=== PATIENT | female | born 1955 | race Caucasian/White ===

== ENCOUNTER 2018-01-27 21:28 | Inpatient (IN) | payer BC, OTHER ==
[2018-01-27] MEDS ORDERED: Pantoprazole 40 MG Vial IVPUSH ONE (21:36)
[2018-01-27] MEDS ORDERED: Lactated Ringers 1,000 ML IV ONE ×2 (21:36→23:19)
[2018-01-27] MEDS ORDERED: Famotidine 20 MG/2 ML SDV IVPUSH ONE (21:36)
[2018-01-27] MEDS ORDERED: Ondansetron 4 MG/2 ML SDV IVPUSH ONE (21:36)
--- NOTE | 2018-01-27 21:36 | EDM.PDOC ---
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 List & Annotations (1) Abdominal pain SNOMED Code(s): 91937929 Code(s): R10.9 - UNSPECIFIED ABDOMINAL PAIN Status: Acute Priority: High Current Visit: No Onset Date: 01/27/18 Annotation/Comment:: CT scan results as above. Borderline peritonitis. IV Rocephin and IV Flagyl started in the emergency room. This will be continued during hospitalization with surgical consultation the a.m. depending on her clinical course. Qualifiers: Abdominal location: right lower quadrant Qualified Code(s): R10.31 - Right lower quadrant pain (2) Pneumonia SNOMED Code(s): 643530485 Code(s): J18.9 - PNEUMONIA, UNSPECIFIED ORGANISM Status: Acute Priority: High Current Visit: No Onset Date: ~01/27/18 Annotation/Comment:: Evidence of left lower lobe pneumonia by CT scan as above. Nebulizer treatments and continuation of IV antibiotics as above. Attempt to obtain sputum for culture and sensitivity. Qualifiers: Pneumonia type: due to unspecified organism Laterality: left Lung location: lower lobe of lung Qualified Code(s): J18.1 - Lobar pneumonia, unspecified organism (3) COPD (chronic obstructive pulmonary disease) SNOMED Code(s): 86624050 Code(s): J44.9 - CHRONIC OBSTRUCTIVE PULMONARY DISEASE, UNSPECIFIED Status : Chronic Priority: Medium Current Visit: No Annotation/Comment:: No recent bronchitic type symptoms. COPD by previous chest x-rays with no current medical therapy. No clinical evidence of pneumonia or significant bronchitis. Qualifiers: COPD type: emphysema Emphysema type: panlobular Qualified Code(s): J43.1 - Panlobular emphysema (4) Hypotension SNOMED Code(s): 57203094 Code(s): I95.9 - HYPOTENSION, UNSPECIFIED Status: Acute Priority: High Current Visit: No Annotation/Comment:: Known history of intermittent chronic hypotension. Secondary to fever and tachycardia patient does meet sepsis criteria with blood cultures 2 collected. Lactated Ringer's IV bolus given in the emergency room with additional 1 L bolus started in the emergency room. Continue IV fluids thereafter. Lactic acid level normal. Qualifiers: Hypotension type: other hypotension type Qualified Code(s): I95.89 - Other hypotension (5) Mixed anxiety depressive disorder SNOMED Code(s): 191122039 Code(s): F41.8 - OTHER SPECIFIED ANXIETY DISORDERS Status: Chronic Priority: Medium Current Visit: No Annotation/Comment:: Moderate control secondary to current illness. Continue to observe closely. IV Ativan given for patient comfort. (6) Osteoarthritis SNOMED Code(s): 307317857 Code(s): M19.90 - UNSPECIFIED OSTEOARTHRITIS, UNSPECIFIED SITE Status: Chronic Priority: Medium Current Visit: No Annotation/Comment:: Stable by history with exception of nonspecific low back pain at this time with no recent acute injury, etc. Qualifiers: Osteoarthritis location: multiple joints Osteoarthritis type: primary Qualified Code(s): M15.0 - Primary generalized (osteo)arthritis (7) Postconcussion syndrome SNOMED Code(s): 53368954 Code(s): F07.81 - POSTCONCUSSIONAL SYNDROME Status: Chronic Priority: Medium Current Visit: No Annotation/Comment:: Postconcussion syndrome followed by her neurologist. Exacerbation of chronic headaches today. Change to observe closely. (8) Dehydration SNOMED Code(s): 36940186 Code(s): E86.0 - DEHYDRATION Status: Acute Priority: High Current Visit : No Onset Date: ~01/27/18 Annotation/Comment:: Mild dehydration by clinical exam. IV fluids initiated in the emergency room as above. - Problem List Review Problem List Initiated/Reviewed/Updated: Yes - My Orders Last 24 Hours: My Active Orders 01/27/18 21:36 Peripheral IV Care [RC] . DIRECTED Abdomen Pelvis w Cont [CT] Stat H PYLORI STOOL ANTIGEN [MREF] Urgent OCCULT BLOOD DIAGNOSTIC [OP] Stat Sodium Chloride 0.9% [Saline Flush] 10 ml FLUSH ASDIRECTED PRN Blood Culture x2 Reflex Set [OM.PC] Urgent Peripheral IV Insertion Adult [OM.PC] Stat Resuscitation Status Stat 01/27/18 21:40 CULTURE BLOOD [BC] Stat 01/27/18 21:45 cefTRIAXone [Rocephin] 1 gm Sodium Chloride 0.9% [Normal Saline] 100 ml IV Q12H metroNIDAZOLE/Normal Saline [Flagyl 500 MG in NS 100 ML] 500 mg Premix Bag 1 bag IV Q8H 01/27/18 21:50 CULTURE BLOOD [BC] Stat 01/27/18 21:51 Peripheral IV Care [RC] . DIRECTED Sodium Chloride 0.9% [Saline Flush] 10 ml FLUSH ASDIRECTED PRN Peripheral IV Insertion Adult [OM.PC] Routine 01/28/18 00:10 CULTURE URINE [RM] Stat UA W/MICROSCOPIC [URIN] Stat - Assessment/Plan Admission H&P: Please use this note as an admission H&P Last 24 Hours: My Active Orders 01/27/18 21:36 Peripheral IV Care [RC] . DIRECTED Abdomen Pelvis w Cont [CT] Stat H PYLORI STOOL ANTIGEN [MREF] Urgent OCCULT BLOOD DIAGNOSTIC [OP] Stat Sodium Chloride 0.9% [Saline Flush] 10 ml FLUSH ASDIRECTED PRN Blood Culture x2 Reflex Set [OM.PC] Urgent Peripheral IV Insertion Adult [OM.PC] Stat Resuscitation Status Stat 01/27/18 21:40 CULTURE BLOOD [BC] Stat 01/27/18 21:45 cefTRIAXone [Rocephin] 1 gm Sodium Chloride 0.9% [Normal Saline] 100 ml IV Q12H metroNIDAZOLE/Normal Saline [Flagyl 500 MG in NS 100 ML] 500 mg Premix Bag 1 bag IV Q8H 01/27/18 21:50 CULTURE BLOOD [BC] Stat 01/27/18 21:51 Peripheral IV Care [RC] . DIRECTED Sodium Chloride 0.9% [Saline Flush] 10 ml FLUSH ASDIRECTED PRN Peripheral IV Insertion Adult [OM.PC] Routine 01/28/18 00:10 CULTURE URINE [RM] Stat UA W/MICROSCOPIC [URIN] Stat Assessment:: As above Plan: As above. Extensive precautions were given to the patient and her , who is in agreement with the treatment plan. The patient will require about 3-4 days of inpatient/acute care secondary to multiple health problems as above.
[2018-01-27] MEDS ORDERED: cefTRIAXone 1 GM in Sodium Chloride 0.9% 100 ML IV SCH (21:45)
[2018-01-27] MEDS: Sodium Chloride 0.9% 10 ML Syringe FLUSH PRN ×3 (21:47→22:01)
[2018-01-27] MEDS ORDERED: LORazepam 2 MG/ML SDV IVPUSH ONE (21:50)
[2018-01-27] MEDS ORDERED: Sodium Chloride 0.9% 10 ML Syringe FLUSH PRN (21:51)
[2018-01-27] MEDS ORDERED: Iopamidol 612 MG/ML 100 ML Bottle IVPUSH ONE (22:00)
[2018-01-27 22:11] LABS: CHLORIDE,CL 102 mmol/L (98-107); SODIUM,NA 136 mmol/L (136-145)
[2018-01-27] MEDS ORDERED: Acetaminophen 325 MG Tab PO ONE (22:43)
[2018-01-27] MEDS: metroNIDAZOLE/Normal Saline 500 MG in Premix Bag 1 BAG IV SCH (22:49)
[2018-01-28] MEDS ORDERED: Non-Formulary Medication 1 Each (Rizatriptan Benzoate [Rizatriptan] 5 MG) PO PRN (00:16)
[2018-01-28] MEDS ORDERED: Acetaminophen 325 MG Tab PO PRN (00:22)
[2018-01-28] MEDS ORDERED: traMADol 50 MG Tab PO PRN (00:22)
[2018-01-28] MEDS ORDERED: Albuterol/Ipratropium 3.0-0.5 MG/3 ML Neb Soln NEB PRN (00:22)
[2018-01-28] MEDS ORDERED: Ondansetron 4 MG/2 ML SDV IVPUSH PRN (00:22)
[2018-01-28] MEDS ORDERED: Sodium Chloride 0.9% 10 ML Syringe FLUSH PRN (00:22)
[2018-01-28] MEDS ORDERED: Albuterol 0.083% 2.5 MG/3 ML Neb Soln INH PRN (00:22)
[2018-01-28] MEDS ORDERED: Temazepam 15 MG Cap PO PRN (00:22)
[2018-01-28] MEDS ORDERED: Lactated Ringers 1,000 ML IV SCH ×2 (00:30→00:55)
[2018-01-28] MEDS: Dextromethorphan/guaiFENesin 600-30 MG Tab.ER PO SCH ×2 (00:57→08:26)
[2018-01-28] MEDS: Albuterol/Ipratropium 3.0-0.5 MG/3 ML Neb Soln NEB SCH ×2 (01:13→08:26)
[2018-01-28] MEDS: metroNIDAZOLE/Normal Saline 500 MG in Premix Bag 1 BAG IV SCH (05:34)
[2018-01-28] MEDS: Sodium Chloride 0.9% 10 ML Syringe FLUSH PRN ×4 (05:35→08:59)
[2018-01-28] MEDS ORDERED: Lactated Ringers 1,000 ML IV ONE (07:11)
[2018-01-28] MEDS ORDERED: Sodium Chloride 0.9% 1,000 ML IV SCH (07:15)
[2018-01-28] MEDS ORDERED: DOPamine/Dextrose 5%-Water 400 MG/250 ML BAG IV SCH (07:15)
[2018-01-28 07:56] LABS: CHLORIDE,CL 106 mmol/L (98-107); SODIUM,NA 138 mmol/L (136-145)
[2018-01-28] MEDS ORDERED: FLUoxetine 20 MG Cap PO SCH (08:00)
[2018-01-28] MEDS ORDERED: Budesonide 0.5 MG/2 ML Neb Susp NEB SCH (08:00)
--- NOTE | 2018-01-28 08:33 | PCM.DCSUM1 ---
Discharge Summary - Hospital Course HPI Initial Comments: See emergency room note/admission H&P Brief History: See emergency room note/admission H&P - Discharge Data Discharge Date: 01/28/18 Discharge Disposition: DC/Tfer to Acute Hospital 02 Condition: Serious - Discharge Diagnosis/Problem(s) (1) Sepsis SNOMED Code(s): 33278360 ICD Code: A41.9 - SEPSIS, UNSPECIFIED ORGANISM Status: Acute Priority: High Current Visit: Yes Onset Date: 01/28/18 Problem Details: Probable progressive sepsis with secondary hypotension possibly secondary to GI abnormality. Systolic blood pressure in the 70s this morning with patient given and an additional liter IV bolus of lactated Ringer's with 2 previous IV boluses as below. Continuation of aggressive IV hydration 150 mL per hour after this bolus. Patient was also started on dopamine infusion, which was titrated to 4 g prior to patient transfer. Extensive telephone consultation with the providers at [facility] from 08:15 through 08:25 hours this morning. Providers include Dr. Mendes, medical ICU physician, Dr. Sanders surgical ICU physician, and Dr. Ayala, general surgeon with providers requesting initial evaluation of the patient in their emergency room with possible emergent abdominal laparotomy pending on their evaluation. No further treatment recommendations given. Ambulance transfer with ssrs developer accompaniment. Pressures were somewhat improved prior to transfer as below. Note urine test was normal with urine culture and sensitivity still pending. Blood cultures 2 were collected as below. Dr. Ayala will evaluate the patient in the emergency room. He agrees to contact the emergency room physicians concerning patient transfer. Qualifiers: Sepsis type: sepsis due to unspecified organism Qualified Code(s): A41.9 - Sepsis, unspecified organism (2) Hypotension SNOMED Code(s): 86138873 ICD Code: I95.9 - HYPOTENSION, UNSPECIFIED Status: Acute Priority: High Current Visit: Yes Problem Details: Progressive hypotension as above. Known history of intermittent chronic hypotension. Secondary to fever and tachycardia patient does meet sepsis criteria with blood cultures 2 collected. Lactated Ringer's IV bolus given in the emergency room with additional 1 L bolus started in the emergency room. Continue IV fluids thereafter. Lactic acid level normal on admission and this morning. Qualifiers: Hypotension type: other hypotension type Qualified Code(s): I95.89 - Other hypotension (3) CHF (congestive heart failure) SNOMED Code(s): 03734741 ICD Code: I50.9 - HEART FAILURE, UNSPECIFIED Status: Acute Priority: High Current Visit: Yes Onset Date: 01/28/18 Problem Details: Newly diagnosed fluid overload/acute CHF overall mild in nature secondary to clinical exam, chest x-ray, and elevated BNP. Normal cardiac enzymes, including d-dimer, with no EKG changes, chest pain, or other anginal complaints. Cardiology consultation depending on her clinical course. Qualifiers: Heart failure type: unspecified Heart failure chronicity: acute Qualified Code(s): I50.9 - Heart failure, unspecified (4) Abdominal pain SNOMED Code(s): 64779746 ICD Code: R10.9 - UNSPECIFIED ABDOMINAL PAIN Status: Acute Priority: High Current Visit: Yes Onset Date: 01/27/18 Problem Details: CT scan results as per emergency room note with no direct GI etiology to patient's symptoms, although her appendix could not be completely seen/evaluated. Abdominal pain improved to 2/10 this morning after IV antibiotic therapy with additionally improved borderline rebound. Borderline peritonitis probably still an issue especially in light of progressive anemia since admission with hemoglobin of 10.6 this morning in comparison to 12.4 prior to admission with additional microcytosis. Stool specimen yet to be obtained. IV Rocephin and IV Flagyl started in the emergency room with patient given a 2 g IV bolus of Rocephin immediately prior to transfer secondary to sepsis as above. Qualifiers: Abdominal location: right lower quadrant Qualified Code(s): R10.31 - Right lower quadrant pain (5) Pneumonia SNOMED Code(s): 114200963 ICD Code: J18.9 - PNEUMONIA, UNSPECIFIED ORGANISM Status: Acute Priority : High Current Visit: No Onset Date: ~01/27/18 Problem Details: Evidence of left lower lobe pneumonia by CT scan as above. Today's chest x-ray indicates only borderline left lower lobe and right middle lobe infiltrates versus atelectasis with small left pleural effusion Nebulizer treatments given during this hospitalization with no significant wheezing or respiratory distress. Attempted to obtain sputum for culture and sensitivity, however unsuccessful prior to patient transfer. Qualifiers: Pneumonia type: due to unspecified organism Laterality: left Lung location: lower lobe of lung Qualified Code(s): J18.1 - Lobar pneumonia, unspecified organism (6) COPD (chronic obstructive pulmonary disease) SNOMED Code(s): 43289906 ICD Code: J44.9 - CHRONIC OBSTRUCTIVE PULMONARY DISEASE, UNSPECIFIED Status : Chronic Priority: Medium Current Visit: No Problem Details: No recent bronchitic type symptoms despite fever and evidence of possible borderline left lower lobe pneumonia by CT scan on admission as above. COPD by previous chest x- rays with no current medical therapy. Consider PFTs once her condition has stabilized. Qualifiers: COPD type: emphysema Emphysema type: panlobular Qualified Code(s): J43.1 - Panlobular emphysema (7) Mixed anxiety depressive disorder SNOMED Code(s): 391942053 ICD Code: F41.8 - OTHER SPECIFIED ANXIETY DISORDERS Status: Chronic Priority: Medium Current Visit: No Problem Details: Moderate control secondary to current illness. Continue to observe closely. IV Ativan given for patient comfort. (8) Osteoarthritis SNOMED Code(s): 309853903 ICD Code: M19.90 - UNSPECIFIED OSTEOARTHRITIS, UNSPECIFIED SITE Status: Chronic Priority: Medium Current Visit: No Problem Details: Stable by history with exception of nonspecific low back pain at this time with no recent acute injury, etc. Qualifiers: Osteoarthritis location: multiple joints Osteoarthritis type: primary Qualified Code(s): M15.0 - Primary generalized (osteo)arthritis (9) Postconcussion syndrome SNOMED Code(s): 80962186 ICD Code: F07.81 - POSTCONCUSSIONAL SYNDROME Status: Chronic Priority: Medium Current Visit: No Problem Details: Postconcussion syndrome followed by her neurologist. Exacerbation of chronic headaches today, although improved this morning to 4/10. Continue to observe closely. (10) Dehydration SNOMED Code(s): 46915009 ICD Code: E86.0 - DEHYDRATION Status: Acute Priority: High Current Visit: No Onset Date: ~01/27/18 Problem Details: Mild dehydration by clinical exam. IV fluids initiated in the emergency room as above. (11) Anemia SNOMED Code(s): 306907422 ICD Code: D64.9 - ANEMIA, UNSPECIFIED Status: Acute Priority: High Current Visit: Yes Onset Date: ~01/28/18 Problem Details: Progressive microcytic anemia as above. GI workup/surgical consult depending on her clinical course as above. Consider iron studies, etc. Qualifiers: Anemia type: other cause Other causes of anemia: other cause, not classified Qualified Code(s): D64.89 - Other specified anemias (12) Hypoalbuminemia SNOMED Code(s): 154798114 ICD Code: E88.09 - OTH DISORDERS OF PLASMA-PROTEIN METABOLISM, NEC Status: Acute Priority: Medium Current Visit: Yes Onset Date: 01/28/18 Problem Details: Consider high-protein Glucerna supplements after patient's condition improves. (13) Hypocalcemia SNOMED Code(s): 7365026 ICD Code: E83.51 - HYPOCALCEMIA Status: Acute Priority: Medium Current Visit: Yes Onset Date: 01/28/18 Problem Details: Consider calcium supplement after patient's condition improves. - Patient Summary/Data Operative Procedure(s) Performed: None Complications: Progressive sepsis, hypertension, and mild CHF as above Consults: ICU specialists and general surgeon from [facility] in [place] as above Labs Pending at D/C: 1. Blood cultures 2 2. Urine culture and sensitivity results Recommended Follow-up Testing/Procedures: As above Planned Operative Procedure(s) after DC: As above Hospital Course: Patient was admitted to inpatient/acute care on telemetry for evaluation of abdominal pain, possible peritonitis, and additional possible pneumonia with progressive hypotension and anemia during this hospitalization as above. Patient was aggressively treated with IV Rocephin, IV Flagyl, and IV fluids with evidence of progressive sepsis during her brief hospitalization. Aggressive care for her sepsis as above. Note some fluid overload and CHF as above. Emergent transfer to [place] secondary to progressive complications as above, although improved vital signs prior to transfer on dopamine drip. She was kept nothing by mouth during this hospitalization. - Patient Instructions Diet: NPO Activity: Bedrest Driving: Do Not Drive Showering/Bathing: No Showering Notify Provider of: Fever, Increased Pain, Nausea and/or Vomiting Other/Special Instructions: Ambulance transfer with ssrs developer accompaniment - Discharge Plan Home Medications: Home Meds FLUoxetine [PROzac] 20 mg PO DAILY 07/05/14 [History] traMADol [Ultram] 50 mg PO Q6H PRN 05/24/15 [History] Acetaminophen 500 mg PO Q6H PRN 03/04/16 [History] Naproxen Sodium [Aleve] 220 mg PO TID PRN 01/27/18 [History] Ondansetron [Zofran ODT] 4 mg PO Q6H PRN 01/27/18 [History] Rizatriptan Benzoate [Rizatriptan] 5 mg PO DAILY PRN 01/27/18 [History] Patient Handouts: Abdominal Pain, Adult, Ceftriaxone injection, Hypotension, [id number], Chronic Obstructive Pulmonary Disease, [id number], Metronidazole injection, Community-Acquired Pneumonia, Adult Forms: ED Department Discharge, Interfacility Transfer EMTALA Referrals: Laure Gutierrez PA-C [Primary Care Provider] - - Discharge Summary/Plan Comment DC Time >30 min.: Yes (Coordination of care ) Discharge Summary/Plan Comment: As above. Extensive precautions were given to the patient, who is in agreement with the treatment plan. The patient did notify her prior to patient transfer. - General Info Date of Service: 01/28/18 Admission Dx/Problem (Free Text: 1. Abdominal pain with possible peritonitis 2. Possible beginning sepsis 3. Left lower lobe pneumonia Functional Status: Reports: Pain Controlled, Ambulating, Urinating, New Symptoms (Progressive hypotension as above). Denies: Tolerating Diet (Nothing by mouth) Numeric/FACES Score: 4 (Headache as above) - Review of Systems General: Reports: Weakness, Fatigue. Denies: Fever (Febrile on admission however afebrile at time of transfer with Tylenol given), Malaise, Chills, Night Sweats, Appetite (Some anorexia) HEENT: Reports: Headaches. Denies: Ear Pain, Eye Pain, Sinus Congestion, Sore Throat, Rhinitis, Visual Changes Pulmonary: Reports: Cough. Denies: Shortness of Breath, Pleuritic Chest Pain, Sputum, Hemoptysis, Wheezing Cardiovascular: Reports: Lightheadedness. Denies: Chest Pain, Palpitations, Orthopnea, PND, Edema Gastrointestinal: Reports: Abdominal Pain, Constipation (No bowel movement during this hospitalization), Decreased Appetite. Denies: Difficulty Swallowing , Flatus, Hematochezia, Melena, Nausea, Vomiting Genitourinary: Reports: No Symptoms. Denies: Dysuria, Frequency, Burning, Pain , Urgency, Incontinence, Hematuria, Retention, Flank Pain Musculoskeletal: Reports: Back Pain (Stable nonspecific low back). Denies: Neck Pain, Shoulder Pain, Arm Pain Skin: Reports: No Symptoms. Denies: Jaundice, Pallor, Diaphoresis, Dryness, Bruising, Rash Neurological: Reports: Dizziness, Headache, Weakness. Denies: Confusion, Numbness, Paresthesia, Seizure, Tingling Psychiatric: Reports: No Symptoms. Denies: Confusion, Depression, Anxiety, Agitation, Hallucinations - Patient Data Vitals - Most Recent: Last Vital Signs Temp 36.7 C 01/28/18 04:00 Pulse 88 01/28/18 04:00 Resp 20 01/28/18 04:00 BP 88/54 L 01/28/18 08:12 Pulse Ox 97 01/28/18 04:00 Vital Signs - 24 hr 01/27/18 01/27/18 01/27/18 21:34 21:39 21:54 Temperature [ 38.4 C H Oral] Pulse, 105 H 108 H 104 H Peripheral [ Brachial] Respiratory 20 30 H 28 H Rate Blood Pressure [Right Upper Arm] Blood Pressure 113/63 111/59 L 102/53 L [Upper Arm] O2 Sat by Pulse 93 L 90 L 95 Oximetry 01/27/18 01/27/18 01/27/18 22:09 22:28 22:45 Temperature [ 38.3 C H Oral] Pulse, 106 H 112 H 107 H Peripheral [ Brachial] Respiratory 29 H 19 29 H Rate Blood Pressure [Right Upper Arm] Blood Pressure 96/55 L 104/55 L 99/53 L [Upper Arm] O2 Sat by Pulse 93 L 95 95 Oximetry 01/27/18 01/27/18 01/27/18 23:00 23:10 23:39 Temperature [ Oral] Pulse, 104 H 105 H Peripheral [ Brachial] Respiratory 30 H 27 H Rate Blood Pressure [Right Upper Arm] Blood Pressure 91/48 L 93/50 L 94/50 L [Upper Arm] O2 Sat by Pulse 95 94 L Oximetry 01/27/18 01/28/18 01/28/18 23:55 00:21 04:00 Temperature [ 37.3 C 36.7 C Oral] Pulse, 103 H 88 Peripheral [ Brachial] Respiratory 22 H 20 Rate Blood Pressure [Right Upper Arm] Blood Pressure 94/45 L 80/42 L [Upper Arm] O2 Sat by Pulse 94 L 96 97 Oximetry 01/28/18 01/28/18 01/28/18 05:39 07:00 08:12 Temperature [ 36.5 C Oral] Pulse, 85 Peripheral [ Brachial] Respiratory Rate Blood Pressure 72/42 L 88/54 L [Right Upper Arm] Blood Pressure 86/50 L [Upper Arm] O2 Sat by Pulse Oximetry 01/28/18 01/28/18 08:35 09:00 Temperature [ Oral] Pulse, Peripheral [ Brachial] Respiratory Rate Blood Pressure 92/58 L 92/54 L [Right Upper Arm] Blood Pressure [Upper Arm] O2 Sat by Pulse Oximetry Weight - Most Recent: 62.051 kg I&O - Last 24 hours: Intake & Output 01/27/18 01/28/18 01/28/18 22:59 06:59 14:59 Intake Total 2853 Output Total 600 Balance 2253 Imaging Impressions - Last 24 hrs: monitoring tech shows normal sinus rhythm with heart rate in the 80s prior to transfer with no ectopy or arrhythmia Chest x-ray, portable, on 01/28/18 shows evidence of moderate COPD changes with possible right middle lobe and left lower lobe atelectasis versus mild pulmonary infiltrates. Mild left pleural effusion noted. No significant cardiomegaly with mild to moderate mostly centralized CHF and/or pulmonary hypertension. CT of the abdomen and pelvis with contrast indicates left lower lobe pulmonary infiltrates and pleural effusion with fatty liver and indeterminate 1 cm left renal cyst. Severe constipation. Chronic right sacroiliitis. Appendix cannot be properly visualized. NOTE: Corrected CT scan report requested today with verbal report indicating left rather than right pulmonary infiltrates and pleural effusion. Lab Results - Last 24 hrs: Laboratory Results - last 24 hr 01/27/18 01/27/18 01/27/18 Range/Units 21:40 21:40 21:40 WBC 11.6 H (4.0-10.2) K/uL RBC 3.85 (3.77-5.09) M/uL Hgb 12.4 (11.7-15.5) g/dL Hct 36.4 (34.0-46.0) % MCV 94.5 D (84.0-98.0) fL MCH 32.2 (28.2-33.3) pg MCHC 34.1 (31.7-36.0) g/dL RDW 12.4 (11.2-14.1) % Plt Count 245 (150-350) K/uL Neut % (Auto) 88.6 H (45.0-80.0) % Lymph % (Auto) 5.4 L (10.0-50.0) % [place] % (Auto) 5.8 (2.0-14.0) % Eos % (Auto) 0.1 (0.0-5.0) % Baso % (Auto) 0.1 (0.0-2.0) % Neut # (Auto) 10.27 H (1.40-7.00) K/uL Lymph # (Auto) 0.62 (0.50-3.50) K/uL [place] # (Auto) 0.67 (0.00-1.00) K/uL Eos # (Auto) 0.01 (0.00-0.50) K/uL Baso # (Auto) 0.01 (0.00-0.20) K/uL PT 10.3 (9.8-11.7) SEC INR 1.0 APTT 26.1 (22.1-29.8) SEC D-Dimer, Quantitative (0-400) ng/mL Sodium (136-145) mmol/L Potassium (3.5-5.1) mmol/L Chloride (98-107) mmol/L Carbon Dioxide (21.0-32.0) mmol/L BUN (7-18) mg/dL Creatinine (0.51-1.17) mg/dL Est Cr Clr Drug Dosing mL/min Estimated GFR (MDRD) mL/min Glucose (74-106) mg/dL Lactic Acid (0.4-2.0) mmol/L Uric Acid (2.6-7.2) mg/dL Calcium (8.5-10.1) mg/dL Magnesium (1.8-2.4) mg/dL Total Bilirubin (0.2-1.0) mg/dL AST (15-37) U/L ALT (12-78) U/L Alkaline Phosphatase (46-116) IU/L Creatine Kinase (26-308) U/L Creatine Kinase Index (0.0-2.5) % CK-MB (CK-2) (0.00-3.60) ng/mL Troponin I (0.000-0.056) ng/mL Total Protein (6.4-8.2) g/dL Albumin (3.4-5.0) g/dL Amylase 43 (25-115) U/L Lipase (73-393) U/L Specimen Type Urine Color Urine Appearance Urine pH (5.0-9.0) Ur Specific [place] (1.005-1.030) Urine Protein (NEGATIVE) mg/dL Urine Glucose (UA) (NEGATIVE) mg/dL Urine Ketones (NEGATIVE) mg/dL Urine Occult Blood (NEGATIVE) Urine Nitrite (NEGATIVE) Urine Bilirubin (NEGATIVE) Urine Urobilinogen (0.2-1.0) E.U./dL Ur Leukocyte Esterase (NEGATIVE) Urine RBC /HPF Urine WBC /HPF Ur Epithelial Cells /LPF Urine Bacteria (NONE TO FEW) /HPF 01/27/18 01/27/18 01/28/18 Range/Units 21:40 21:40 00:10 WBC (4.0-10.2) K/uL RBC (3.77-5.09) M/uL Hgb (11.7-15.5) g/dL Hct (34.0-46.0) % MCV (84.0-98.0) fL MCH (28.2-33.3) pg MCHC (31.7-36.0) g/dL RDW (11.2-14.1) % Plt Count (150-350) K/uL Neut % (Auto) (45.0-80.0) % Lymph % (Auto) (10.0-50.0) % [place] % (Auto) (2.0-14.0) % Eos % (Auto) (0.0-5.0) % Baso % (Auto) (0.0-2.0) % Neut # (Auto) (1.40-7.00) K/uL Lymph # (Auto) (0.50-3.50) K/uL [place] # (Auto) (0.00-1.00) K/uL Eos # (Auto) (0.00-0.50) K/uL Baso # (Auto) (0.00-0.20) K/uL PT (9.8-11.7) SEC INR APTT (22.1-29.8) SEC D-Dimer, Quantitative (0-400) ng/mL Sodium 136 (136-145) mmol/L Potassium 3.8 (3.5-5.1) mmol/L Chloride 102 (98-107) mmol/L Carbon Dioxide 24.7 (21.0-32.0) mmol/L BUN 13 (7-18) mg/dL Creatinine 0.84 (0.51-1.17) mg/dL Est Cr Clr Drug Dosing 64.09 mL/min Estimated GFR (MDRD) > 60 mL/min Glucose 106 (74-106) mg/dL Lactic Acid 0.8 (0.4-2.0) mmol/L Uric Acid 3.4 (2.6-7.2) mg/dL Calcium 8.1 L (8.5-10.1) mg/dL Magnesium 2.1 (1.8-2.4) mg/dL Total Bilirubin 0.5 (0.2-1.0) mg/dL AST 24 (15-37) U/L ALT 31 (12-78) U/L Alkaline Phosphatase 62 (46-116) IU/L Creatine Kinase (26-308) U/L Creatine Kinase Index (0.0-2.5) % CK-MB (CK-2) (0.00-3.60) ng/mL Troponin I (0.000-0.056) ng/mL Total Protein 7.1 (6.4-8.2) g/dL Albumin 3.6 (3.4-5.0) g/dL Amylase (25-115) U/L Lipase 123 (73-393) U/L Specimen Type Urinvoid Urine Color Yellow Urine Appearance Clear Urine pH 6.0 (5.0-9.0) Ur Specific [place] <= 1.005 (1.005-1.030) Urine Protein Negative (NEGATIVE) mg/dL Urine Glucose (UA) Negative (NEGATIVE) mg/dL Urine Ketones Negative (NEGATIVE) mg/dL Urine Occult Blood Trace-lysed H (NEGATIVE) Urine Nitrite Negative (NEGATIVE) Urine Bilirubin Negative (NEGATIVE) Urine Urobilinogen 0.2 (0.2-1.0) E.U./dL Ur Leukocyte Esterase Negative (NEGATIVE) Urine RBC 0-5 /HPF Urine WBC 0-5 /HPF Ur Epithelial Cells Rare /LPF Urine Bacteria Rare (NONE TO FEW) /HPF 01/28/18 01/28/18 01/28/18 Range/Units 07:25 07:25 07:25 WBC 12.7 H (4.0-10.2) K/uL RBC 3.30 L (3.77-5.09) M/uL Hgb 10.6 L D (11.7-15.5) g/dL Hct 31.8 L (34.0-46.0) % MCV 96.4 (84.0-98.0) fL MCH 32.1 (28.2-33.3) pg MCHC 33.3 (31.7-36.0) g/dL RDW 12.8 (11.2-14.1) % Plt Count 216 (150-350) K/uL Neut % (Auto) 83.2 H (45.0-80.0) % Lymph % (Auto) 8.2 L (10.0-50.0) % [place] % (Auto) 8.5 (2.0-14.0) % Eos % (Auto) 0.0 (0.0-5.0) % Baso % (Auto) 0.1 (0.0-2.0) % Neut # (Auto) 10.60 H (1.40-7.00) K/uL Lymph # (Auto) 1.05 (0.50-3.50) K/uL [place] # (Auto) 1.08 H (0.00-1.00) K/uL Eos # (Auto) 0.00 (0.00-0.50) K/uL Baso # (Auto) 0.01 (0.00-0.20) K/uL PT 11.5 (9.8-11.7) SEC INR 1.1 APTT 27.2 (22.1-29.8) SEC D-Dimer, Quantitative (0-400) ng/mL Sodium 138 (136-145) mmol/L Potassium 3.9 (3.5-5.1) mmol/L Chloride 106 (98-107) mmol/L Carbon Dioxide 25.9 (21.0-32.0) mmol/L BUN 9 (7-18) mg/dL Creatinine 0.68 (0.51-1.17) mg/dL Est Cr Clr Drug Dosing 79.17 mL/min Estimated GFR (MDRD) > 60 mL/min Glucose 96 (74-106) mg/dL Lactic Acid (0.4-2.0) mmol/L Uric Acid (2.6-7.2) mg/dL Calcium 7.3 L (8.5-10.1) mg/dL Magnesium (1.8-2.4) mg/dL Total Bilirubin 0.4 (0.2-1.0) mg/dL AST 19 (15-37) U/L ALT 21 (12-78) U/L Alkaline Phosphatase 45 L (46-116) IU/L Creatine Kinase 168 (26-308) U/L Creatine Kinase Index 0.5 (0.0-2.5) % CK-MB (CK-2) 0.80 (0.00-3.60) ng/mL Troponin I 0.000 (0.000-0.056) ng/mL Total Protein 5.6 L (6.4-8.2) g/dL Albumin 2.6 L (3.4-5.0) g/dL Amylase (25-115) U/L Lipase (73-393) U/L Specimen Type Urine Color Urine Appearance Urine pH (5.0-9.0) Ur Specific [place] (1.005-1.030) Urine Protein (NEGATIVE) mg/dL Urine Glucose (UA) (NEGATIVE) mg/dL Urine Ketones (NEGATIVE) mg/dL Urine Occult Blood (NEGATIVE) Urine Nitrite (NEGATIVE) Urine Bilirubin (NEGATIVE) Urine Urobilinogen (0.2-1.0) E.U./dL Ur Leukocyte Esterase (NEGATIVE) Urine RBC /HPF Urine WBC /HPF Ur Epithelial Cells /LPF Urine Bacteria (NONE TO FEW) /HPF 01/28/18 01/28/18 Range/Units 07:25 07:25 WBC (4.0-10.2) K/uL RBC (3.77-5.09) M/uL Hgb (11.7-15.5) g/dL Hct (34.0-46.0) % MCV (84.0-98.0) fL MCH (28.2-33.3) pg MCHC (31.7-36.0) g/dL RDW (11.2-14.1) % Plt Count (150-350) K/uL Neut % (Auto) (45.0-80.0) % Lymph % (Auto) (10.0-50.0) % [place] % (Auto) (2.0-14.0) % Eos % (Auto) (0.0-5.0) % Baso % (Auto) (0.0-2.0) % Neut # (Auto) (1.40-7.00) K/uL Lymph # (Auto) (0.50-3.50) K/uL [place] # (Auto) (0.00-1.00) K/uL Eos # (Auto) (0.00-0.50) K/uL Baso # (Auto) (0.00-0.20) K/uL PT (9.8-11.7) SEC INR APTT (22.1-29.8) SEC D-Dimer, Quantitative 150 (0-400) ng/mL Sodium (136-145) mmol/L Potassium (3.5-5.1) mmol/L Chloride (98-107) mmol/L Carbon Dioxide (21.0-32.0) mmol/L BUN (7-18) mg/dL Creatinine (0.51-1.17) mg/dL Est Cr Clr Drug Dosing mL/min Estimated GFR (MDRD) mL/min Glucose (74-106) mg/dL Lactic Acid 1.0 (0.4-2.0) mmol/L Uric Acid (2.6-7.2) mg/dL Calcium (8.5-10.1) mg/dL Magnesium (1.8-2.4) mg/dL Total Bilirubin (0.2-1.0) mg/dL AST (15-37) U/L ALT (12-78) U/L Alkaline Phosphatase (46-116) IU/L Creatine Kinase (26-308) U/L Creatine Kinase Index (0.0-2.5) % CK-MB (CK-2) (0.00-3.60) ng/mL Troponin I (0.000-0.056) ng/mL Total Protein (6.4-8.2) g/dL Albumin (3.4-5.0) g/dL Amylase (25-115) U/L Lipase (73-393) U/L Specimen Type Urine Color Urine Appearance Urine pH (5.0-9.0) Ur Specific [place] (1.005-1.030) Urine Protein (NEGATIVE) mg/dL Urine Glucose (UA) (NEGATIVE) mg/dL Urine Ketones (NEGATIVE) mg/dL Urine Occult Blood (NEGATIVE) Urine Nitrite (NEGATIVE) Urine Bilirubin (NEGATIVE) Urine Urobilinogen (0.2-1.0) E.U./dL Ur Leukocyte Esterase (NEGATIVE) Urine RBC /HPF Urine WBC /HPF Ur Epithelial Cells /LPF Urine Bacteria (NONE TO FEW) /HPF Laboratory Tests 01/27/18 01/27/18 01/27/18 Range/Units 21:40 21:40 21:40 WBC 11.6 H (4.0-10.2) K/uL RBC 3.85 (3.77-5.09) M/uL Hgb 12.4 (11.7-15.5) g/dL Hct 36.4 (34.0-46.0) % MCV 94.5 D (84.0-98.0) fL MCH 32.2 (28.2-33.3) pg MCHC 34.1 (31.7-36.0) g/dL RDW 12.4 (11.2-14.1) % Plt Count 245 (150-350) K/uL Neut % (Auto) 88.6 H (45.0-80.0) % Lymph % (Auto) 5.4 L (10.0-50.0) % [place] % (Auto) 5.8 (2.0-14.0) % Eos % (Auto) 0.1 (0.0-5.0) % Baso % (Auto) 0.1 (0.0-2.0) % Neut # (Auto) 10.27 H (1.40-7.00) K/uL Lymph # (Auto) 0.62 (0.50-3.50) K/uL [place] # (Auto) 0.67 (0.00-1.00) K/uL Eos # (Auto) 0.01 (0.00-0.50) K/uL Baso # (Auto) 0.01 (0.00-0.20) K/uL PT 10.3 (9.8-11.7) SEC INR 1.0 APTT 26.1 (22.1-29.8) SEC D-Dimer, Quantitative (0-400) ng/mL Sodium (136-145) mmol/L Potassium (3.5-5.1) mmol/L Chloride (98-107) mmol/L Carbon Dioxide (21.0-32.0) mmol/L BUN (7-18) mg/dL Creatinine (0.51-1.17) mg/dL Est Cr Clr Drug Dosing mL/min Estimated GFR (MDRD) mL/min Glucose (74-106) mg/dL Lactic Acid (0.4-2.0) mmol/L Uric Acid (2.6-7.2) mg/dL Calcium (8.5-10.1) mg/dL Magnesium (1.8-2.4) mg/dL Total Bilirubin (0.2-1.0) mg/dL AST (15-37) U/L ALT (12-78) U/L Alkaline Phosphatase (46-116) IU/L Creatine Kinase (26-308) U/L Creatine Kinase Index (0.0-2.5) % CK-MB (CK-2) (0.00-3.60) ng/mL Troponin I (0.000-0.056) ng/mL NT-Pro-B Natriuret Pep (0-125) pg/mL Total Protein (6.4-8.2) g/dL Albumin (3.4-5.0) g/dL Amylase 43 (25-115) U/L Lipase (73-393) U/L Specimen Type Urine Color Urine Appearance Urine pH (5.0-9.0) Ur Specific [place] (1.005-1.030) Urine Protein (NEGATIVE) mg/dL Urine Glucose (UA) (NEGATIVE) mg/dL Urine Ketones (NEGATIVE) mg/dL Urine Occult Blood (NEGATIVE) Urine Nitrite (NEGATIVE) Urine Bilirubin (NEGATIVE) Urine Urobilinogen (0.2-1.0) E.U./dL Ur Leukocyte Esterase (NEGATIVE) Urine RBC /HPF Urine WBC /HPF Ur Epithelial Cells /LPF Urine Bacteria (NONE TO FEW) /HPF 01/27/18 01/27/18 01/28/18 Range/Units 21:40 21:40 00:10 WBC (4.0-10.2) K/uL RBC (3.77-5.09) M/uL Hgb (11.7-15.5) g/dL Hct (34.0-46.0) % MCV (84.0-98.0) fL MCH (28.2-33.3) pg MCHC (31.7-36.0) g/dL RDW (11.2-14.1) % Plt Count (150-350) K/uL Neut % (Auto) (45.0-80.0) % Lymph % (Auto) (10.0-50.0) % [place] % (Auto) (2.0-14.0) % Eos % (Auto) (0.0-5.0) % Baso % (Auto) (0.0-2.0) % Neut # (Auto) (1.40-7.00) K/uL Lymph # (Auto) (0.50-3.50) K/uL [place] # (Auto) (0.00-1.00) K/uL Eos # (Auto) (0.00-0.50) K/uL Baso # (Auto) (0.00-0.20) K/uL PT (9.8-11.7) SEC INR APTT (22.1-29.8) SEC D-Dimer, Quantitative (0-400) ng/mL Sodium 136 (136-145) mmol/L Potassium 3.8 (3.5-5.1) mmol/L Chloride 102 (98-107) mmol/L Carbon Dioxide 24.7 (21.0-32.0) mmol/L BUN 13 (7-18) mg/dL Creatinine 0.84 (0.51-1.17) mg/dL Est Cr Clr Drug Dosing 64.09 mL/min Estimated GFR (MDRD) > 60 mL/min Glucose 106 (74-106) mg/dL Lactic Acid 0.8 (0.4-2.0) mmol/L Uric Acid 3.4 (2.6-7.2) mg/dL Calcium 8.1 L (8.5-10.1) mg/dL Magnesium 2.1 (1.8-2.4) mg/dL Total Bilirubin 0.5 (0.2-1.0) mg/dL AST 24 (15-37) U/L ALT 31 (12-78) U/L Alkaline Phosphatase 62 (46-116) IU/L Creatine Kinase (26-308) U/L Creatine Kinase Index (0.0-2.5) % CK-MB (CK-2) (0.00-3.60) ng/mL Troponin I (0.000-0.056) ng/mL NT-Pro-B Natriuret Pep (0-125) pg/mL Total Protein 7.1 (6.4-8.2) g/dL Albumin 3.6 (3.4-5.0) g/dL Amylase (25-115) U/L Lipase 123 (73-393) U/L Specimen Type Urinvoid Urine Color Yellow Urine Appearance Clear Urine pH 6.0 (5.0-9.0) Ur Specific [place] <= 1.005 (1.005-1.030) Urine Protein Negative (NEGATIVE) mg/dL Urine Glucose (UA) Negative (NEGATIVE) mg/dL Urine Ketones Negative (NEGATIVE) mg/dL Urine Occult Blood Trace-lysed H (NEGATIVE) Urine Nitrite Negative (NEGATIVE) Urine Bilirubin Negative (NEGATIVE) Urine Urobilinogen 0.2 (0.2-1.0) E.U./dL Ur Leukocyte Esterase Negative (NEGATIVE) Urine RBC 0-5 /HPF Urine WBC 0-5 /HPF Ur Epithelial Cells Rare /LPF Urine Bacteria Rare (NONE TO FEW) /HPF 01/28/18 01/28/18 01/28/18 Range/Units 07:25 07:25 07:25 WBC 12.7 H (4.0-10.2) K/uL RBC 3.30 L (3.77-5.09) M/uL Hgb 10.6 L D (11.7-15.5) g/dL Hct 31.8 L (34.0-46.0) % MCV 96.4 (84.0-98.0) fL MCH 32.1 (28.2-33.3) pg MCHC 33.3 (31.7-36.0) g/dL RDW 12.8 (11.2-14.1) % Plt Count 216 (150-350) K/uL Neut % (Auto) 83.2 H (45.0-80.0) % Lymph % (Auto) 8.2 L (10.0-50.0) % [place] % (Auto) 8.5 (2.0-14.0) % Eos % (Auto) 0.0 (0.0-5.0) % Baso % (Auto) 0.1 (0.0-2.0) % Neut # (Auto) 10.60 H (1.40-7.00) K/uL Lymph # (Auto) 1.05 (0.50-3.50) K/uL [place] # (Auto) 1.08 H (0.00-1.00) K/uL Eos # (Auto) 0.00 (0.00-0.50) K/uL Baso # (Auto) 0.01 (0.00-0.20) K/uL PT 11.5 (9.8-11.7) SEC INR 1.1 APTT 27.2 (22.1-29.8) SEC D-Dimer, Quantitative (0-400) ng/mL Sodium 138 (136-145) mmol/L Potassium 3.9 (3.5-5.1) mmol/L Chloride 106 (98-107) mmol/L Carbon Dioxide 25.9 (21.0-32.0) mmol/L BUN 9 (7-18) mg/dL Creatinine 0.68 (0.51-1.17) mg/dL Est Cr Clr Drug Dosing 79.17 mL/min Estimated GFR (MDRD) > 60 mL/min Glucose 96 (74-106) mg/dL Lactic Acid (0.4-2.0) mmol/L Uric Acid (2.6-7.2) mg/dL Calcium 7.3 L (8.5-10.1) mg/dL Magnesium (1.8-2.4) mg/dL Total Bilirubin 0.4 (0.2-1.0) mg/dL AST 19 (15-37) U/L ALT 21 (12-78) U/L Alkaline Phosphatase 45 L (46-116) IU/L Creatine Kinase 168 (26-308) U/L Creatine Kinase Index 0.5 (0.0-2.5) % CK-MB (CK-2) 0.80 (0.00-3.60) ng/mL Troponin I 0.000 (0.000-0.056) ng/mL NT-Pro-B Natriuret Pep (0-125) pg/mL Total Protein 5.6 L (6.4-8.2) g/dL Albumin 2.6 L (3.4-5.0) g/dL Amylase (25-115) U/L Lipase (73-393) U/L Specimen Type Urine Color Urine Appearance Urine pH (5.0-9.0) Ur Specific [place] (1.005-1.030) Urine Protein (NEGATIVE) mg/dL Urine Glucose (UA) (NEGATIVE) mg/dL Urine Ketones (NEGATIVE) mg/dL Urine Occult Blood (NEGATIVE) Urine Nitrite (NEGATIVE) Urine Bilirubin (NEGATIVE) Urine Urobilinogen (0.2-1.0) E.U./dL Ur Leukocyte Esterase (NEGATIVE) Urine RBC /HPF Urine WBC /HPF Ur Epithelial Cells /LPF Urine Bacteria (NONE TO FEW) /HPF 01/28/18 01/28/18 01/28/18 Range/Units 07:25 07:25 07:25 WBC (4.0-10.2) K/uL RBC (3.77-5.09) M/uL Hgb (11.7-15.5) g/dL Hct (34.0-46.0) % MCV (84.0-98.0) fL MCH (28.2-33.3) pg MCHC (31.7-36.0) g/dL RDW (11.2-14.1) % Plt Count (150-350) K/uL Neut % (Auto) (45.0-80.0) % Lymph % (Auto) (10.0-50.0) % [place] % (Auto) (2.0-14.0) % Eos % (Auto) (0.0-5.0) % Baso % (Auto) (0.0-2.0) % Neut # (Auto) (1.40-7.00) K/uL Lymph # (Auto) (0.50-3.50) K/uL [place] # (Auto) (0.00-1.00) K/uL Eos # (Auto) (0.00-0.50) K/uL Baso # (Auto) (0.00-0.20) K/uL PT (9.8-11.7) SEC INR APTT (22.1-29.8) SEC D-Dimer, Quantitative 150 (0-400) ng/mL Sodium (136-145) mmol/L Potassium (3.5-5.1) mmol/L Chloride (98-107) mmol/L Carbon Dioxide (21.0-32.0) mmol/L BUN (7-18) mg/dL Creatinine (0.51-1.17) mg/dL Est Cr Clr Drug Dosing mL/min Estimated GFR (MDRD) mL/min Glucose (74-106) mg/dL Lactic Acid 1.0 (0.4-2.0) mmol/L Uric Acid (2.6-7.2) mg/dL Calcium (8.5-10.1) mg/dL Magnesium (1.8-2.4) mg/dL Total Bilirubin (0.2-1.0) mg/dL AST (15-37) U/L ALT (12-78) U/L Alkaline Phosphatase (46-116) IU/L Creatine Kinase (26-308) U/L Creatine Kinase Index (0.0-2.5) % CK-MB (CK-2) (0.00-3.60) ng/mL Troponin I (0.000-0.056) ng/mL NT-Pro-B Natriuret Pep 1603 H (0-125) pg/mL Total Protein (6.4-8.2) g/dL Albumin (3.4-5.0) g/dL Amylase (25-115) U/L Lipase (73-393) U/L Specimen Type Urine Color Urine Appearance Urine pH (5.0-9.0) Ur Specific [place] (1.005-1.030) Urine Protein (NEGATIVE) mg/dL Urine Glucose (UA) (NEGATIVE) mg/dL Urine Ketones (NEGATIVE) mg/dL Urine Occult Blood (NEGATIVE) Urine Nitrite (NEGATIVE) Urine Bilirubin (NEGATIVE) Urine Urobilinogen (0.2-1.0) E.U./dL Ur Leukocyte Esterase (NEGATIVE) Urine RBC /HPF Urine WBC /HPF Ur Epithelial Cells /LPF Urine Bacteria (NONE TO FEW) /HPF JANETT Results - Last 24 hrs: Urine culture and sensitivity pending Blood cultures 2 pending Med Orders - Current: Current Medications Acetaminophen (Tylenol) 650 mg PO Q4H PRN PRN Reason: Pain (Mild 1-3)/fever Last Admin: 01/28/18 07:50 Dose: 650 mg Albuterol (Proventil Neb Soln) 2.5 mg INH Q2H PRN PRN Reason: SHORTNESS OF BREATH Albuterol/Ipratropium (Duoneb 3.0-0.5 Mg/3 Ml) 3 ml NEB Q4HRRT PRN PRN Reason: Dyspnea Albuterol/Ipratropium (Duoneb 3.0-0.5 Mg/3 Ml) 3 ml NEB Q6HRRT [facility] Last Admin: 01/28/18 01:13 Dose: 3 ml Budesonide (Pulmicort) 0.5 mg NEB BIDRT [facility] Famotidine (Pepcid) 20 mg IVPUSH Q12H [facility] Fluoxetine HCl (Prozac) 20 mg PO DAILY [facility] Guaifenesin/Dextromethorphan (Mucinex Dm Er 600-30 Mg) 1 tab PO BID [facility] Last Admin: 01/28/18 00:57 Dose: 1 tab Ceftriaxone Sodium 1 gm/ (Sodium Chloride) 100 mls @ 200 mls/hr IV Q12H [facility] Last Admin: 01/27/18 22:13 Dose: 200 mls/hr Metronidazole 500 mg/ Premix 100 mls @ 100 mls/hr IV Q8H [facility] Last Admin: 01/28/18 05:34 Dose: 100 mls/hr Dopamine HCl/Dextrose (Dopamine In D5w 400 Mg/250 Ml) 400 mg in 250 mls @ 4.654 mls/hr IV TITRATE [facility]; Protocol Last Titration: 01/28/18 08:24 Dose: 4 mcg/kg/min, 9.308 mls/hr Sodium Chloride (Normal Saline) 1,000 mls @ 50 mls/hr IV ASDIRECTED [facility] Non-Formulary Medication (Rizatriptan Benzoate [Rizatriptan]) 5 mg PO DAILY PRN PRN Reason: migraine Ondansetron HCl (Zofran) 4 mg IVPUSH Q6H PRN PRN Reason: Nausea/Vomiting Last Admin: 01/28/18 08:22 Dose: 4 mg Pantoprazole Sodium (Protonix Iv) 40 mg IVPUSH Q12H [facility] Sodium Chloride (Saline Flush) 10 ml FLUSH ASDIRECTED PRN PRN Reason: Keep Vein Open Last Admin: 01/28/18 08:22 Dose: 10 ml Sodium Chloride (Saline Flush) 10 ml FLUSH ASDIRECTED PRN PRN Reason: Keep Vein Open Sodium Chloride (Saline Flush) 10 ml FLUSH Q12H PRN PRN Reason: Keep Vein Open Temazepam (Restoril) 15 mg PO BEDTIME PRN PRN Reason: Insomnia Tramadol HCl (Ultram) 50 mg PO Q6H PRN PRN Reason: Breakthrough Pain Last Admin: 01/28/18 07:51 Dose: 50 mg Discontinued Medications Acetaminophen (Tylenol) 650 mg PO NOW ONE Stop: 01/27/18 22:44 Last Admin: 01/27/18 22:48 Dose: 650 mg Famotidine (Pepcid) 40 mg IVPUSH ONETIME ONE Stop: 01/27/18 21:37 Last Admin: 01/27/18 21:47 Dose: 40 mg Lactated Ringer's (Ringers, Lactated) 1,000 mls @ 999 mls/hr IV .BOLUS ONE Stop: 01/27/18 22:36 Last Admin: 01/27/18 21:58 Dose: 999 mls/hr Lactated Ringer's (Ringers, Lactated) 1,000 mls @ 999 mls/hr IV .BOLUS ONE Stop: 01/28/18 00:19 Last Admin: 01/27/18 23:21 Dose: 999 mls/hr Lactated Ringer's (Ringers, Lactated) 1,000 mls @ 150 mls/hr IV ASDIRECTED [facility] Last Admin: 01/28/18 00:57 Dose: 100 mls/hr Lactated Ringer's (Ringers, Lactated) 1,000 mls @ 999 mls/hr IV .BOLUS ONE Stop: 01/28/18 08:11 Last Admin: 01/28/18 07:35 Dose: 999 mls/hr Iopamidol (Isovue-300 (61%)) 100 ml IVPUSH ONETIME ONE Stop: 01/27/18 22:01 Last Admin: 01/27/18 22:30 Dose: 100 ml Lorazepam (Ativan) 0.5 mg IVPUSH ONETIME ONE Stop: 01/27/18 21:51 Last Admin: 01/27/18 22:02 Dose: 0.5 mg Ondansetron HCl (Zofran) 4 mg IVPUSH ONETIME ONE Stop: 01/27/18 21:37 Last Admin: 01/27/18 21:46 Dose: 4 mg Pantoprazole Sodium (Protonix Iv) 40 mg IVPUSH ONETIME ONE Stop: 01/27/18 21:37 Last Admin: 01/27/18 21:47 Dose: 40 mg - Exam Quality Assessment: Reports: Supplemental Oxygen, DVT Prophylaxis. Denies: Central Line/PICC, Urine Catheter, Skin Breakdown, Restraints General: Reports: Alert, Oriented, Cooperative, No Acute Distress HEENT: Reports: Pupils Equal, Pupils Reactive, EOMI, Mucous Membr. Moist/[place] Neck: Reports: Supple, Trachea Midline, No JVD, No Thyromegaly. Denies: Lymphadenopathy Lungs: Reports: Normal Respiratory Effort, Rales (Mild bilateral basilar rales) . Denies: Rhonchi, Rub, Stridor, Wheezing Cardiovascular: Reports: Regular Rate, Regular Rhythm, No Murmurs. Denies: Gallops, Rubs GI/Abdominal Exam: Normal Bowel Sounds, No Organomegaly, No Distention, No Abnormal Bruit, No Mass, Pelvis Stable, Rebound (Borderline ), Tender (Improved mild right lower quadrant palpation pain). No: Guarding, Rigid (Female) Exam: Deferred Rectal (Female) Exam: Deferred Back Exam: Reports: Normal Inspection, Full Range of Motion. Denies: CVA Tenderness (L), CVA Tenderness (R), Muscle Spasm Extremities: Normal Inspection, Normal Range of Motion, Non-Tender, No Pedal Edema, Normal Capillary Refill. No: Nancy's Sign Skin: Reports: Warm, Dry, Intact. Denies: Rash, Ecchymosis Neurological: Reports: No New Focal Deficit (Despite progressive hypotension) Psy/Mental Status: Reports: Alert, Normal Affect, Normal Mood. Denies: Agitated , Hallucinations, Withdrawal Symptoms EKG INTERPRETATION EKG Date: 01/28/18 Time: 07:31 Rhythm: NSR Rate (Beats/Min): 81 [place]: Normal (Neutral cardiac axis) P-Wave: Enlarged (Mild diffuse biphasic P waves with pulmonary hypertension by EKG) QRS: Normal (QRS interval 0.08 seconds) ST-T: Normal QT: Normal MS/PQ Interval: 0.16 seconds Comparison: NA - No Prior EKG EKG Interpretation Comments: 1. No acute ischemic changes 2. Atrial enlargement-left 3. Pulmonary hypertension by EKG
[2018-01-28] MEDS ORDERED: cefTRIAXone 2 GM Vial IVPUSH ONE (08:37)
[2018-01-28 09:03] VITALS: BP 92/54
--- NOTE | 2018-01-28 10:08 | PCM.SN ---
- Free Text/Narrative Note: Note a [employer] form was completed by me prior to patient's transfer with additional blank [employer] form provided for his providers at [facility] in [place].
[2018-01-28] MEDS ORDERED: Famotidine 20 MG/2 ML SDV IVPUSH SCH (18:00)
[2018-01-28] MEDS ORDERED: Pantoprazole 40 MG Vial IVPUSH SCH (18:00)
== END 2018-01-28 09:20 | DRG 720 ==
LOC: LL.ED 21:28 → LL.MS 23:40 → UNDOADMIN 23:40 → LL.MS 01-28 00:10
PROVIDERS: ADMIT Family Medicine; ATTEND Family Medicine
DX: A41.9 Sepsis, unspecified organism (principal); J44.0 Chronic obstructive pulmonary disease with (acute) lower respiratory infection; J18.9 Pneumonia, unspecified organism; E86.0 Dehydration; I95.89 Other hypotension; I11.0 Hypertensive heart disease with heart failure; E87.70 Fluid overload, unspecified; I50.9 Heart failure, unspecified; K65.9 Peritonitis, unspecified; D50.9 Iron deficiency anemia, unspecified; M15.0 Primary generalized (osteo)arthritis; G30.9 Alzheimer's disease, unspecified; F02.80 Dementia in other diseases classified elsewhere, unspecified severity, without behavioral disturbance, psychotic disturbance, mood disturbance, and anxiety; G44.329 Chronic post-traumatic headache, not intractable; F07.81 Postconcussional syndrome; F41.8 Other specified anxiety disorders; E88.09 Other disorders of plasma-protein metabolism, not elsewhere classified; E83.51 Hypocalcemia; R00.0 Tachycardia, unspecified; K21.9 Gastro-esophageal reflux disease without esophagitis; F17.210 Nicotine dependence, cigarettes, uncomplicated; Z88.8 Allergy status to other drugs, medicaments and biological substances; Z79.899 Other long term (current) drug therapy; Z79.891 Long term (current) use of opiate analgesic; Z86.73 Personal history of transient ischemic attack (TIA), and cerebral infarction without residual deficits; Z87.01 Personal history of pneumonia (recurrent)
CPT/HCPCS: 36415; 71045; 74177; 80053; 81001; 82150; 82550; 82553; 83605; 83690; 83735; 83880; 84484; 84550; 85025; 85379; 85610; 85730; 87040; 87086; 93005; 94640; 96361; 96365; 96367; 96374; 96375; 99285; A9270-GY; C9113; J0696; J1265; J2060; J2405; J7050; J7120; Q9967; S0028

== ENCOUNTER 2018-02-03 14:27 | Emergency (ER) | payer BC ==
--- NOTE | 2018-02-03 14:51 | EDM.PDOC ---
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 antibiotics for now secondary to our concerns of possible C. difficile as above. Despite fever earlier today the patient is afebrile in the emergency room with no recent antipyretic medications. Also note no leukocytosis with CRP elevation likely secondary to possible C. difficile colitis. Her regular provider was updated concerning this treatment plan during subsequent telephone consultation as below. COPD by previous chest x-rays with no current medical therapy. Consider PFTs once her condition has stabilized. Qualifiers: COPD type: emphysema Emphysema type: panlobular Qualified Code(s): J43.1 - Panlobular emphysema (8) Postconcussion syndrome SNOMED Code(s): 76381193 Code(s): F07.81 - POSTCONCUSSIONAL SYNDROME Status: Chronic Priority: Medium Current Visit: Yes Annotation/Comment:: Postconcussion syndrome followed by her neurologist recent negative MRI of the brain as above. Continue to observe closely by her regular provider. (9) Osteoarthritis SNOMED Code(s): 375640385 Code(s): M19.90 - UNSPECIFIED OSTEOARTHRITIS, UNSPECIFIED SITE Status: Chronic Priority: Medium Current Visit: Yes Annotation/Comment:: Stable by history with no recent acute injury, etc. Qualifiers: Osteoarthritis location: multiple joints Osteoarthritis type: primary Qualified Code(s): M15.0 - Primary generalized (osteo)arthritis (10) Hypoalbuminemia SNOMED Code(s): 798157080 Code(s): E88.09 - OTH DISORDERS OF PLASMA-PROTEIN METABOLISM, NEC Status: Acute Priority: Medium Current Visit: No Onset Date: 01/28/18 Annotation /Comment:: High-protein Glucerna supplements twice a day snacks advisable with continued close observation by her regular providers. (11) Hypocalcemia SNOMED Code(s): 1071130 Code(s): E83.51 - HYPOCALCEMIA Status: Acute Priority: Medium Current Visit: No Onset Date: 01/28/18 Annotation/Comment:: The patient has been noncompliant with her calcium supplementation with her hypocalcemia currently being worked up by her regular providers. Medication compliance strongly encouraged. The patient is uncertain about her current medical therapy and is using OTC supplements. All medications and supplements are to be brought to her regular provider as per discharge instructions. (12) Elevated LFTs SNOMED Code(s): 637273587, 096259371 Code(s): R79.89 - OTHER SPECIFIED ABNORMAL FINDINGS OF BLOOD CHEMISTRY Status: Acute Priority: Medium Current Visit: Yes Onset Date: 02/03/18 Annotation/Comment:: LFTs elevation likely secondary to her CHF. Continue to observe closely by her regular provider. - Problem List Review Problem List Initiated/Reviewed/Updated: Yes - My Orders Last 24 Hours: My Active Orders 02/03/18 14:59 Cardiac Monitoring [RC] . DIRECTED Obtain Past Medical Record [OM.PC] Routine - Assessment/Plan Last 24 Hours: My Active Orders 02/03/18 14:59 Cardiac Monitoring [RC] . DIRECTED Obtain Past Medical Record [OM.PC] Routine Assessment:: As above Plan: As above. Extensive precautions were given to the patient, who is in agreement with the treatment plan. See Patient Instructions for further treatment and plan. Subsequent telephone consultation with her regular provider, Laure Gutierrez PA-C, at [facility] in [place], at about 16:30 hours this afternoon. Patient is apparently upset and confused about her current medical therapy, although she was quite happy with treatment per history from the nursing staff prior to leaving our emergency room. Her provider was updated concerning today' s visit, treatment plan, etc. as above with a copy of this emergency room note to be faxed to our office later today.
[2018-02-03] MEDS ORDERED: Pantoprazole 40 MG Tab.CR PO ONE (15:00)
[2018-02-03] MEDS ORDERED: Potassium Chloride 20 MEQ Tab.ER PO ONE (15:01)
[2018-02-03 15:38] VITALS: BP 127/78
== END 2018-02-03 16:00 | disposition home or self-care (01) ==
LOC: LL.ED 14:27
DX: I50.9 Heart failure, unspecified (principal); D64.9 Anemia, unspecified; I95.89 Other hypotension; F41.8 Other specified anxiety disorders; J44.9 Chronic obstructive pulmonary disease, unspecified; F07.81 Postconcussional syndrome; M15.0 Primary generalized (osteo)arthritis; E88.09 Other disorders of plasma-protein metabolism, not elsewhere classified; E83.51 Hypocalcemia; R79.89 Other specified abnormal findings of blood chemistry; Z88.8 Allergy status to other drugs, medicaments and biological substances; Z79.899 Other long term (current) drug therapy; Z87.01 Personal history of pneumonia (recurrent); Z87.891 Personal history of nicotine dependence
CPT/HCPCS: 99284; A9270-GY